=== PATIENT | female | born 1935 | race Caucasian/White ===

== ENCOUNTER 2018-02-11 09:34 | Emergency (ER) | payer OTHER ==
[~2018-02-11] VITALS: Ht 157.5 cm; Wt 60.0 kg
[~2018-02-11 09:34] MED LIST: CITA40TA5 PO
[2018-02-11 11:07] VITALS: BP 119/55
== END 2018-02-11 11:53 | disposition home or self-care (01) ==
LOC: ED 10:27
DX: K56.41 Fecal impaction (principal); I10 Essential (primary) hypertension
CPT/HCPCS: 99284

== ENCOUNTER 2018-02-14 12:22 | Emergency (ER) | payer OTHER ==
[~2018-02-14] VITALS: Ht 157.5 cm; Wt 65.1 kg
[2018-02-14 12:24] VITALS: BP 137/76
[2018-02-14] MEDS ORDERED: KLOR-CON (13:01)
[2018-02-14] MEDS ORDERED: HTN (13:01)
[2018-02-14] MEDS ORDERED: ANXIETY (13:01)
== END 2018-02-14 13:16 | disposition home or self-care (01) ==
LOC: ED 12:55
DX: K62.3 Rectal prolapse (principal); I10 Essential (primary) hypertension
CPT/HCPCS: 99284

== ENCOUNTER 2018-09-13 12:23 | Emergency (ER) | payer MEDICARE, OTHER ==
[~2018-09-13] VITALS: Ht 157.5 cm; Wt 66.2 kg
[~2018-09-13 12:23] MED LIST changes: +ANXIETY; +HTN; +KLOR-CON
[2018-09-13 12:42] VITALS: BP 143/82
--- NOTE | 2018-09-13 12:51 | NUR ---
PT PRESENTED TO ED WITH VAGINAL PAIN AND POSSIBLE "CYST" ON VAGINA FOR 2-3 DAYS. PT A&OX4. ASSESSMENT COMPLETED. PT PLACED ON BP AND CONT. PULSE OXIMETER. AWAITING MD. CALL LIGHT IN REACH
--- NOTE | 2018-09-13 13:08 | NUR ---
report given to dayne carrasco
--- NOTE | 2018-09-13 13:30 | NUR ---
PT NOTED TO HAVE A RIGHT LABIAL CYST. AMBULATED TO BATHROOM WHILE AWAITING MD MARY
== END 2018-09-13 14:37 | disposition home or self-care (01) ==
LOC: ED 13:39
DX: L73.9 Follicular disorder, unspecified (principal); I10 Essential (primary) hypertension; Z87.891 Personal history of nicotine dependence
CPT/HCPCS: 99283

== ENCOUNTER 2018-09-15 11:27 | Emergency (ER) | payer MEDICARE ==
[2018-09-15 11:31] VITALS: BP 132/76
[2018-09-15] MEDS ORDERED: LIDOCAINE-MPF 1%, 5ML INFIL ONE (13:00)
--- NOTE | 2018-09-15 13:05 | NUR ---
CARE ASSUMED. PT RESTING QUIETLY. PER PROVIDER, PT TO BE DC'D WITHOUT INTERVENTION AT THIS TIME. PT IS DRESSED. NO DISTRESS NOTED. PT AWAITING PAPERWORK.
== END 2018-09-15 13:34 | disposition home or self-care (01) ==
LOC: ED 13:26
DX: N76.4 Abscess of vulva (principal); L73.8 Other specified follicular disorders
CPT/HCPCS: 99284